=== PATIENT | female | born 1980 | race Caucasian/White ===

== ENCOUNTER 2017-05-17 19:24 | Emergency (ER) | payer SELFPAY ==
[~2017-05-17] VITALS: Ht 152.4 cm; Wt 76.8 kg
[2017-05-17 19:28] VITALS: BP 127/73; TEMP 97.7
[2017-05-17] MEDS ORDERED: PERCOCET 325 MG1 TA2 PO (20:09)
[2017-05-17 20:40] VITALS: PULSE 89
== END 2017-05-17 20:40 | disposition home or self-care (01) ==
LOC: COL.ER
DX: T23.252A Burn of second degree of left palm, initial encounter (principal); T23.232A Burn of second degree of multiple left fingers (nail), not including thumb, initial encounter; F41.9 Anxiety disorder, unspecified; X19.XXXA Contact with other heat and hot substances, initial encounter; Y92.69 Other specified industrial and construction area as the place of occurrence of the external cause; Y99.0 Civilian activity done for income or pay